=== PATIENT | male | born 1995 | race Caucasian/White ===

== ENCOUNTER 2020-12-27 20:46 | Emergency (ER) | payer MEDICAID, OTHER ==
[~2020-12-27] VITALS: Ht 180.3 cm; Wt 78.2 kg
--- NOTE | 2020-12-27 20:59 | NUR ---
Changing to gown, large cellulitis with open sore to lower ortiz. Pt marked boarders with pen, is not taking any abx, has not seen md yet for infection.
--- NOTE | 2020-12-27 21:28 | NUR ---
ERP resident at bedside, waiting for further orders.
[2020-12-27] MEDS ORDERED: CLINDAMYCIN PMX 600MG/50ML 50 ML IV ONE (22:00)
[2020-12-27] MEDS ORDERED: METHADONE 10 MG TABLET PO ONE (22:00)
[2020-12-27] MEDS ORDERED: CLINDAMYCIN PMX 600MG/50ML 50 ML ONE (22:02)
--- NOTE | 2020-12-27 22:09 | NUR ---
Pt was taken to ultrasound by tech with no notification to this nurse. Pt has not had any blood work drawn and no IV placed yet. Will draw bloods, IV and bc when pt returns from ultrasound. Methadone requested from pharmacy.
--- NOTE | 2020-12-27 22:20 | NUR ---
BC x2 drawn and sent, IV placed. Starting abx.
--- NOTE | 2020-12-27 22:31 | NUR ---
Spoke with pharmacy, will dispense methadone.
[2020-12-27 22:36] LABS: BASOPHILS % (AUTO) 0 % (0-1); EOSINOPHILS % (AUTO) 1 % (1-7); LYMPHOCYTES % (AUTO) 8 % (22-44); MEAN CORPUSCULAR HEMOGLOBIN 31.2 pg (27.5-34.5); MEAN CORPUSCULAR HGB CONC 34.1 g/dL (33.2-36.2); MEAN PLATELET VOLUME 7.4 fL (7.4-10.4); MONOCYTES % (AUTO) 6 % (2-9); NEUTROPHILS % (AUTO) 85 % (42-75); PLATELET COUNT 356 x10^3/uL (130-400); RED BLOOD COUNT 4.68 x10^6/uL (4.38-5.82); RED CELL DISTRIBUTION WIDTH 12.7 % (9.4-14.8)
--- NOTE | 2020-12-27 22:45 | NUR ---
Pt is sleeping, appears comfortable. VSS.
[2020-12-27 22:47] LABS: ALBUMIN 3.7 g/dL (3.4-5.0); ANION GAP 3 mmol/L (5-15); CALCIUM 9.1 mg/dL (8.5-10.1); CHLORIDE 101 mmol/L (98-107); CREATININE 0.81 mg/dL (0.7-1.3)
[2020-12-27] MEDS ORDERED: METHADONE INTENSOL 10 MG/ML ORAL CONC PO ONE (23:00)
--- NOTE | 2020-12-27 23:08 | NUR ---
Pt nearly fell asleep with methadone dose in his hand. Removed dose and held. Pt is very sleepy states he missed his methadone dose but is very sedated.
--- NOTE | 2020-12-27 23:28 | NUR ---
Pt remains very lethargic, sleeping, nodding out. VSS. [facility] ERP Resident that held methadone due to this.
[2020-12-27 23:33] LABS: MD SCAN
--- NOTE | 2020-12-28 00:26 | NUR ---
Pt ready for dc, pt still very lethargic, sleeping wakes up only with stimuli. Informed pt that methadone dose was being held due to his now severly lethargic state. Pt laughed. Methadone wasted in appropriate bin with Linda, [employer]. Informed resident Anni re: this situation also. Pt dc ambulatory with his sister with rx and instruct, he verbalizes understanding of all instruct.
[2020-12-28 00:28] VITALS: BP 122/71
== END 2020-12-28 00:30 | disposition home or self-care (01) ==
LOC: ED 12-28 00:20
DX: L03.116 Cellulitis of left lower limb (principal); D72.829 Elevated white blood cell count, unspecified; R11.0 Nausea; R53.83 Other fatigue
CPT/HCPCS: 36415; 80048; 82040; 85025; 87040; 96365; 99285

== ENCOUNTER 2021-01-02 21:20 | Emergency (ER) | payer MEDICAID ==
[~2021-01-02] VITALS: Ht 180.3 cm; Wt 78.6 kg
[2021-01-02 21:21] VITALS: BP 113/86
[2021-01-02 23:25] LABS: BASOPHILS % (AUTO) 0 % (0-1); EOSINOPHILS % (AUTO) 2 % (1-7); LYMPHOCYTES % (AUTO) 28 % (22-44); MEAN CORPUSCULAR HEMOGLOBIN 31.3 pg (27.5-34.5); MEAN CORPUSCULAR HGB CONC 34.2 g/dL (33.2-36.2); MEAN PLATELET VOLUME 7.1 fL (7.4-10.4); MONOCYTES % (AUTO) 11 % (2-9); NEUTROPHILS % (AUTO) 59 % (42-75); PLATELET COUNT 450 x10^3/uL (130-400); RED BLOOD COUNT 4.39 x10^6/uL (4.38-5.82); RED CELL DISTRIBUTION WIDTH 12.9 % (9.4-14.8)
[2021-01-02 23:26] LABS: MD NO
[2021-01-02 23:33] LABS: ALBUMIN 3.4 g/dL (3.4-5.0); ANION GAP 5 mmol/L (5-15); CALCIUM 9.1 mg/dL (8.5-10.1); CHLORIDE 106 mmol/L (98-107)
[2021-01-02 23:35] LABS: CREATININE 0.83 mg/dL (0.7-1.3)
[2021-01-03] MEDS ORDERED: SULFAMETH./TRIMETHOPRIM DS 800MG/160MG TABLET ONE (00:29)
[2021-01-03] MEDS ORDERED: CEFAZOLIN 1,000 MG ONE (00:29)
[2021-01-03] MEDS ORDERED: SULFAMETH./TRIMETHOPRIM DS 800MG/160MG TABLET PO ONE (00:30)
[2021-01-03] MEDS ORDERED: CEFAZOLIN 1,000 MG IM ONE (00:30)
== END 2021-01-03 00:59 | disposition home or self-care (01) ==
LOC: ED 01-03 00:54
DX: L03.116 Cellulitis of left lower limb (principal)
CPT/HCPCS: 36415; 73590; 80048; 82040; 85025; 93971; 96372; 99285; J0690